=== PATIENT | male | born 1985 | race Hispanic/Latino ===

== ENCOUNTER 2019-04-08 15:55 | Emergency (ER) | payer SELFPAY ==
[~2019-04-08] VITALS: Ht 162.6 cm; Wt 72.7 kg
[2019-04-08 16:47] LABS: HEMATOCRIT 35.1 % (39.0-50.0); HEMOGLOBIN 11.3 g/dl (14.0-18.0); IMMATURE GRANULOCYTES 0.4 % (0.0-5.0); MEAN CELL VOLUME 84.2 fL CALC (80.0-100.0); MEAN CORPUSCULAR HGB 27.1 pG CALC (26.0-32.0); MEAN CORPUSCULAR HGB CONC 32.2 g/L CALC (32.0-36.0); NEUT# 3.51 thou/uL (1.82-7.42); RED BLOOD COUNT 4.17 mill/uL (4.70-6.10); RED CELL DISTRI WIDTH 13.3 % (11.5-15.5)
[2019-04-08 17:08] LABS: ALBUMIN 4.1 g/dL (3.2-5.0); ALKALINE PHOSPHATASE 73 u/l (38-126); ANION GAP 13 (6-22 (CALC)); BILIRUBIN, TOTAL 0.4 mg/dL (0.0-1.4); BUN 15 mg/dL (9-20); BUN/CREATININE RATIO 17 (12-20 (CALC)); CARBON DIOXIDE 22 mmol/l (22-30); CHLORIDE 108 mmol/l (95-108); CREATININE 0.9 mg/dL (0.7-1.3); GFR > 60 ML/MIN (>=60 (CALC)); GFR FOR AFR.AMER. > 60 ML/MIN (>=60 (CALC)); POTASSIUM 3.9 mmol/l (3.5-5.1); SGOT/AST 23 u/l (17-59); SODIUM 140 mmol/l (137-146); TOTAL PROTEIN 6.7 g/dL (6.3-8.2)
[2019-04-08] MEDS ORDERED: ZITHROMAX250 MG PO (17:36)
[2019-04-08] MEDS ORDERED: MEDDOSEPAK PO (17:36)
[2019-04-08] MEDS ORDERED: TESSALON PERLE100 MG PO (17:36)
[2019-04-08] MEDS ORDERED: TORADOL PO (17:36)
[2019-04-08 17:50] VITALS: BP 126/67
== END 2019-04-08 17:57 | disposition home or self-care (01) | DRG 204 ==
LOC: ED 15:55
PROVIDERS: Emergency Medicine
DX: R05 Cough (principal); R51 Headache